=== PATIENT | female | born 1980 | race Two or more races ===

== ENCOUNTER 2017-12-24 11:00 | Inpatient (IN) | payer BC ==
[~2017-12-24 11:00] MED LIST: OXYTOCIN 30 UNITS/LR 500 ML BAG IV
[2017-12-24] MEDS: LACTATED RINGER'S 1,000 ML IV ×2 (11:00→18:42)
[2017-12-24 11:52] LABS: ADD MAN DIFF? NO
[2017-12-24] MEDS ORDERED: OXYTOCIN 30 UNITS/LR 500 ML IV ×2 (12:00→14:30)
[2017-12-24] MEDS ORDERED: METHYLERGONOVINE 0.2 MG INJ IM ×2 (12:00→14:30)
[2017-12-24] MEDS ORDERED: MISOPROSTOL 200 MCG TAB PR ×2 (12:00→14:30)
[2017-12-24] MEDS ORDERED: CARBOPROST 250 MCG INJ IM ×2 (12:00→14:30)
[2017-12-24] MEDS ORDERED: CEFAZOLIN 2 GM/50 ML (PMX) 50 ML IV (12:00)
[2017-12-24 12:11] LABS: WHITE BLOOD COUNT 8.3 10^3/ul (4.8-10.8)
[2017-12-24 12:11] LABS: ABNORMAL IP MESSAGE 1; BASOPHILS % 0.1 % (0.0-2.0); EOSINOPHILS % 0.1 % (0.0-7.0); HEMATOCRIT 32.1 % (37.0-47.0); HEMOGLOBIN 10.6 g/dl (12.0-16.0); LYMPHOCYTES # 1.6 10^3/ul (0.8-2.9); LYMPHOCYTES % 18.9 % (15.0-51.0); MEAN CORPUSCULAR HEMOGLOBIN 27.4 pg (29.0-33.0); MEAN CORPUSCULAR VOLUME 82.9 fl (82.0-101.0); MONOCYTE # 0.4 10^3/ul (0.3-0.9); MONOCYTES % 4.8 % (0.0-11.0); NEUTROPHIL # 6.2 10^3/ul (1.6-7.5); NEUTROPHILS % 75.5 % (39.0-77.0); PLATELET COUNT 149 10^3/UL (140-415); RED BLOOD COUNT 3.87 10^6/ul (4.20-5.40); RED CELL DISTRIBUTION WIDTH 16.9 % (11.5-14.5)
[2017-12-24 12:12] LABS: POSITIVE DIFF @See below; PROTIME 12.2 Sec (11.9-14.9)
[2017-12-24 12:13] LABS: PARTIAL THROMBOPLASTIN TIME 26.4 Sec (25.0-35.0)
[2017-12-24] MEDS ORDERED: BUPIVACAINE 0.75%/DEXT (SPINAL) 2 ML INJ (13:03)
[2017-12-24] MEDS ORDERED: FENTAnyl 50 MCG/ML VIAL (13:04)
[2017-12-24] MEDS ORDERED: morphine SULFATE/PF (10 MG/10 ML) INJ (13:04)
[2017-12-24] MEDS ORDERED: PHENYLephrine (100 MCG/ML) 5ML SYG ×2 (13:15→13:52)
[2017-12-24] MEDS ORDERED: DEXAMETHASONE 4 MG/ML 1 ML INJ (13:24)
[2017-12-24] MEDS ORDERED: ONDANSETRON 4 MG INJ (13:24)
[2017-12-24] MEDS ORDERED: CEFAZOLIN 1 GM INJ (13:56)
[2017-12-24] MEDS ORDERED: DIPHENHYDRAMINE 50 MG INJ IV (14:00)
[2017-12-24] MEDS ORDERED: ONDANSETRON 4 MG INJ IV (14:00)
[2017-12-24] MEDS ORDERED: HYDROmorphONE 0.5 MG/0.5 ML SYG IV ×2 (14:00)
[2017-12-24] MEDS ORDERED: NALOXONE (0.4 MG/ML) INJ IV (14:00)
[2017-12-24] MEDS ORDERED: ZOLPIDEM 5 MG TAB PO (14:00)
[2017-12-24] MEDS ORDERED: LANOLIN 7 GM TUBE TOP (14:30)
[2017-12-24] MEDS: OXYTOCIN 30 UNITS/LR 500 ML IV (14:40)
[2017-12-24 15:35] LABS: HEPATITIS B SURFACE ANTIGEN NEGATIVE (NEGATIVE)
[2017-12-24 16:23] LABS: RAPID PLASMA REAGIN NONREACTIVE (NR)
[2017-12-24] MEDS: KETOROLAC 30 MG INJ IV (18:39)
[2017-12-24] MEDS: SENNA/DOCUSATE NA (8.6MG/50MG) TAB PO (21:23)
[2017-12-25] MEDS: LACTATED RINGER'S 1,000 ML IV (04:43)
[2017-12-25] MEDS: SENNA/DOCUSATE NA (8.6MG/50MG) TAB PO ×2 (10:03→21:29)
[2017-12-25] MEDS: KETOROLAC 30 MG INJ IV (10:04)
[2017-12-25 10:06] LABS: ADD MAN DIFF? NO
[2017-12-25 10:13] LABS: BASOPHILS % 0.1 % (0.0-2.0); HEMATOCRIT 26.7 % (37.0-47.0); HEMOGLOBIN 8.4 g/dl (12.0-16.0); LYMPHOCYTES # 1.8 10^3/ul (0.8-2.9); LYMPHOCYTES % 16.8 % (15.0-51.0); MEAN CORPUSCULAR HEMOGLOBIN 26.9 pg (29.0-33.0); MEAN CORPUSCULAR HGB CONC 31.5 g/dl (32.0-37.0); MEAN CORPUSCULAR VOLUME 85.6 fl (82.0-101.0); MONOCYTE # 0.5 10^3/ul (0.3-0.9); NEUTROPHIL # 8.4 10^3/ul (1.6-7.5); NEUTROPHILS % 77.5 % (39.0-77.0); PLATELET COUNT 140 10^3/UL (140-415); RED BLOOD COUNT 3.12 10^6/ul (4.20-5.40); RED CELL DISTRIBUTION WIDTH 16.5 % (11.5-14.5)
[2017-12-25 10:13] LABS: WHITE BLOOD COUNT 10.8 10^3/ul (4.8-10.8)
[2017-12-25] MEDS: OXYCODONE/ACETAMINOPHEN (5/325) TAB PO ×2 (16:38→23:32)
[2017-12-25] MEDS: IBUPROFEN 800 MG TAB PO (21:30)
[2017-12-25] MEDS: FERROUS SULFATE (EC) 325 MG TAB PO (21:30)
[2017-12-26] MEDS: OXYCODONE/ACETAMINOPHEN (5/325) TAB PO ×3 (02:45→21:03)
[2017-12-26] MEDS: IBUPROFEN 800 MG TAB PO ×3 (05:26→22:16)
[2017-12-26] MEDS: SENNA/DOCUSATE NA (8.6MG/50MG) TAB PO ×2 (09:53→21:05)
[2017-12-26] MEDS: FERROUS SULFATE (EC) 325 MG TAB PO ×3 (09:53→21:02)
[2017-12-26] MEDS: LACTATED RINGER'S 1,000 ML IV ×2 (14:26→22:26)
[2017-12-27] MEDS: IBUPROFEN 800 MG TAB PO ×2 (05:35→13:26)
[2017-12-27] MEDS: LACTATED RINGER'S 1,000 ML IV ×2 (06:26→14:26)
[2017-12-27] MEDS: SENNA/DOCUSATE NA (8.6MG/50MG) TAB PO (08:44)
[2017-12-27] MEDS: FERROUS SULFATE (EC) 325 MG TAB PO ×2 (08:44→12:07)
[2017-12-27] MEDS: OXYCODONE/ACETAMINOPHEN (5/325) TAB PO ×3 (08:45→19:50)
[2017-12-27] MEDS: DIPHTH/TET/ACEL PERTUSS (ADULT) 0.5 ML VIAL IM* (12:06)
[2017-12-27] MEDS ORDERED: VITAMIN A & D 5 GM OINT PACKET TOP (20:59)
== END 2017-12-27 21:57 | disposition home or self-care (01) | DRG 766 ==
LOC: L-D 11:00 → PP1 17:00
PROVIDERS: Obstetrics & Gynecology
PROC: 10D00Z1 Extraction of Products of Conception, Low, Open Approach (ICD-10-PCS; principal; 2017-12-24 12:30)
DX: O71.9 Obstetric trauma, unspecified (principal); Z3A.39 39 weeks gestation of pregnancy; Z37.0 Single live birth; Z23 Encounter for immunization
CPT/HCPCS: 85025; 85610; 85730; 86592; 86850; 86900; 86901; 87340; 90715; 99464